=== PATIENT | female | born 1965 | race Native Hawaiian/Other Pacific Islander ===

== ENCOUNTER → 2018-05-21 | Outpatient (CLI) | payer OTHER ==
--- NOTE | 2018-05-21 16:09 | REP ---
Clinical: Left flank pain. Technique: Axial noncontrast images from the lung bases to the pubic symphysis with coronal and sagittal re-formations. Findings: Lung bases demonstrate minimal chronic-appearing medial left lower lobe fibroatelectatic changes. Liver, spleen, pancreas, bilateral adrenal glands and kidneys are normal. The patient is status post gastric bypass surgery and cholecystectomy. The enteric system is without obstruction or acute inflammatory process. Pelvis demonstrates collapsed normal bladder and age-appropriate uterus/adnexa. No pelvic fluid or ascites. No free air. No adenopathy. Abdominal aorta without aneurysm. Musculoskeletal structures are intact. Impression: No acute abdominopelvic pathology appreciated. Electronically Signed by Hugo James MD 05/21/2018 03:59 P
== END ==
LOC: M RAD 15:29
PROVIDERS: ATTEND Family Medicine
DX: R10.9 Unspecified abdominal pain (principal); Z98.84 Bariatric surgery status